=== PATIENT | male | born 1940 | race Two or more races ===

== ENCOUNTER 2023-01-10 23:01 | Emergency (ER) | payer SELFPAY ==
--- NOTE | 2023-01-10 | ECG_ITS ---
Test Reason : EDEMA Blood Pressure : / mmHG Vent. Rate : 088 BPM Atrial Rate : 088 BPM P-R Int : 188 ms QRS Dur : 076 ms QT Int : 382 ms P-R-T Axes : 070 -12 011 degrees QTc Int : 462 ms Normal sinus rhythm Nonspecific ST and T wave abnormality Abnormal ECG No previous ECGs available Referred By: Generic ED Physician Electronically Signed By:JOE WINSLOW MD
--- NOTE | ~2023-01-10 | XR_ITS ---
EXAMINATION: XR CHEST CLINICAL INFORMATION: Shortness of breath. Concern for congestive heart failure. COMPARISON: None available. TECHNIQUE: Frontal view of the chest was obtained. FINDINGS: The cardiomediastinal silhouette is within normal limits. There appears to be pulmonary vascular congestion. There is lower lung field increased markings. There is no focal consolidation or pleural effusion. The bony structures and soft tissues are unremarkable. XR/XR chest 1V IMPRESSION: Pulmonary vascular congestion. Lower lung field increased markings possibly chronic versus mild edema. No focal consolidation or pleural effusion.
[2023-01-10 23:03] VITALS: BP 142/85; PULSE 96; RESP 18; TEMP 36.8; O2SAT 96; BMI 23.8
[2023-01-10 23:43] LABS: Appearance Urine Clear; Color Urine Yellow; Glucose Urine UA Negative (Negative); Leukocyte Esterase Urine Negative (Negative); Nitrite Urine Negative (Negative); PH 7.5 (5.0-9.0); Specific Gravity - Urine <= 1.005 (1.005-1.025); Urine Blood Negative (Negative); Urine Ketones Negative (Negative); Urine Protein Negative (Neg-Trace)
[2023-01-10 23:48] LABS: Bacteria Urine None Seen (None Seen); Hyaline Casts Urine 0-2 /LPF (0-2); RBC Urine 0-2 /HPF (0-2); Squamous Epithelial Cell Urine 0-2 /HPF (0-2); WBC Urine 0-5 /HPF (0-5)
[2023-01-11 00:06] LABS: Alanine Aminotransferase 50 U/L (0-40); Albumin Level 4.2 g/dL (3.5-5.0); Alkaline Phosphatase 95 U/L (39-117); Anion Gap 15 (12-20); Aspartate Amino Transferase 58 U/L (5-37); Bilirubin Total 0.6 mg/dL (0.0-1.0); Blood Urea Nitrogen 16 mg/dL (9-16); Calcium 9.1 mg/dL (8.4-10.2); Carbon Dioxide 29 mmol/L (22-29); Chloride 91 mmol/L (96-108); Creatinine Clr Calc Pharmacy 28.6; Estimated Glomerular Filt Rate 57; Glucose Random 141 mg/dL (60-115); Potassium 3.2 mmol/L (3.3-5.1); Sodium 132 mmol/L (135-145); Total Protein 7.7 g/dL (6.5-8.0)
[2023-01-11 00:09] LABS: Basophils Absolute Auto 0.1 X10*3/uL (0.0-0.2); Basophils Percent Auto 1.5 % (0-2); Eosinophils Absolute Auto 0.7 X10*3/uL (0.0-0.4); Eosinophils Percent Auto 7.9 % (0-4); Hematocrit 38.9 % (42.0-52.0); Hemoglobin 15.1 g/dl (14.0-18.0); Imm Gran Abs Auto 0.09 X10*3/uL (0.00-0.03); Lymphocytes Absolute Auto 2.8 X10*3/uL (1.2-4.9); Lymphocytes Percent Auto 29.9 % (20-40); MANUAL DIFF FLAG SCAN; Mean Corpuscular Hemoglobin 32.2 pg (27.0-33.0); Mean Corpuscular Volume 82.9 fL (80.0-98.0); Mean Platelet Volume 9.2 fL (9.4-12.4); Monocytes Absolute Auto 1.2 X10*3/uL (0.1-1.2); Monocytes Percent Auto 13.2 % (2-11); Neutrophils Absolute Auto 4.3 x10*3/uL (2.0-8.3); Neutrophils Percent Auto 46.5 % (45-73); Platelet Count 259 X10*3/uL (160-400); Red Blood Count 4.69 X10*6/uL (4.60-5.80); Red Cell Distribution Width 11.2 % (11.0-16.0); SCAN SMEAR FLAG 1; White Blood Count 9.3 X10*3/uL (4.8-10.8)
[2023-01-11 00:27] LABS: Mean Corpuscular HGB Conc 38.8 g/dl (31.0-36.0)
[2023-01-11 00:29] LABS: SLIDE REVIEW VERIFIED
--- NOTE | 2023-01-11 01:25 | ED.GENADULT ---
HPI - General Adult General Chief complaint: General Medical Stated complaint: Swelling in legs 3 days Time Seen by Provider: 01/11/23 01:25 EDT Source: patient and family Mode of arrival: ambulatory Limitations: no limitations History of Present Illness HPI narrative: Patient history of hypertension diabetes came from [facility] brought by his daughter for ankle edema for last 3 days patient is on amlodipine 5 mg daily. No shortness of breath and no chest pain or palpitations patient feels slightly weak saturating 96% on room air Related Data Previous Rx's Medication Instructions Recorded losartan 50 mg-hydrochlorothiazide 1 tab PO DAILY #90 tabs 01/11/23 12.5 mg tablet potassium chloride 20 mEq 20 meq PO DAILY #90 tabs 01/11/23 tablet,extended release Allergies Allergy/AdvReac Type Severity Reaction Status Date / Time No Known Allergies Allergy Verified 01/10/23 23:12 Review of Systems Review of Systems: Yes all other systems are reviewed and are negative [facility] Social History Social History (Reviewed 01/11/23 @ 01:38 EDT by Anival Menjivar MD) Smoked in Last 30 Days: No Use of substances other than those prescribed or required for medical reasons: No Advance Directives: No Advance Directives Information Provided: No Physical Exam ED Vital Signs: Vital Signs - 24 hr 01/10/23 23:03 01/11/23 01:46 EDT Temperature 98.2 F 97.9 F Pulse Rate 96 81 Respiratory Rate 18 15 Blood Pressure 142/85 H 147/82 H Pulse Oximetry 96 96 Oxygen Delivery Method Room Air Room Air BMI result Body Mass Index 23.8 Appearance: Alert. Oriented X3. No acute distress. Eyes: PERRLA, No Nystagmus ENT: Pharynx normal. Oral Mucosa moist Neck: Normal inspection. Neck supple. CVS: Normal heart rate and rhythm. Pulses normal. Respiratory: No respiratory distress. Equal air entry bilateral, no wheezing/rales/rhonchi Abdomen: Soft and nontender. Bowel sounds are present, no mass palpable, Skin: Skin warm and dry. Normal skin color. Normal skin turgor. Extremities: Trace bilateral lower extremity edema. No calf tenderness Neuro: Oriented X 3. No motor deficit. Medications Administered Discontinued Medications Generic Name Dose Route Start Last Admin Trade Name Freq PRN Reason Stop Dose Admin Potassium Chloride 20 meq 01/11/23 01:33 EST 01/11/23 01:53 EST Potassium Chloride Er 20 Meq Tab.Er.Prt PO 01/11/23 01:34 EST 20 meq ONCE ONE Administration Medical Decision Making Medical Decision Making [facility] Narrative: Patient with no finding of CHF comes here for ankle edema secondary to likely amlodipine use will advise the patient to stop taking amlodipine and start on losartan Differential Diagnosis Differential Diagnoses: The differential diagnosis associated with the presentation includes CHF/medication side effect Admission/Observation Consideration of admission/observation: Escalation of care including admission/observation considered Lab Data [facility] Lab Attestation statement: I reviewed the patient's lab results. 01/10/23 23:28 01/10/23 23:28 Labs: Lab Results 01/10/23 01/10/23 Range/Units 23:28 23:36 WBC 9.3 (4.8-10.8) X10*3/uL RBC 4.69 (4.60-5.80) X10*6/uL Hgb 15.1 (14.0-18.0) g/dl Hct 38.9 L (42.0-52.0) % MCV 82.9 (80.0-98.0) fL MCH 32.2 (27.0-33.0) pg MCHC 38.8 H (31.0-36.0) g/dl RDW 11.2 (11.0-16.0) % Plt Count 259 (160-400) X10*3/uL MPV 9.2 L (9.4-12.4) fL Immature Gran % (Auto) 1.0 H (0.0-0.4) % Neut % (Auto) 46.5 (45-73) % Lymph % (Auto) 29.9 (20-40) % Granite % (Auto) 13.2 H (2-11) % Eos % (Auto) 7.9 H (0-4) % Baso % (Auto) 1.5 (0-2) % Lymph # (Auto) 2.8 (1.2-4.9) X10*3/uL Granite # (Auto) 1.2 (0.1-1.2) X10*3/uL Eos # (Auto) 0.7 H (0.0-0.4) X10*3/uL Baso # (Auto) 0.1 (0.0-0.2) X10*3/uL Abs Immat Gran (auto) 0.09 H (0.00-0.03) X10*3/uL Absolute Neuts (auto) 4.3 (2.0-8.3) x10*3/uL Absolute Nucleated RBC 0.000 (0.0-0.012) X10*3/uL Nucleated RBC % (auto) 0.0 (0.0-0.2) /100WBC Smear Tech's Comments VERIFIED Sodium 132 L (135-145) mmol/L Potassium 3.2 L (3.3-5.1) mmol/L Chloride 91 L (96-108) mmol/L Carbon Dioxide 29 (22-29) mmol/L Anion Gap 15 (12-20) BUN 16 (9-16) mg/dL Creatinine 1.21 (0.5-1.4) mg/dL Estim Creat Clear Calc 28.6 Estimated GFR 57 Random Glucose 141 H (60-115) mg/dL Calcium 9.1 (8.4-10.2) mg/dL Total Bilirubin 0.6 (0.0-1.0) mg/dL AST 58 H (5-37) U/L ALT 50 H (0-40) U/L Alkaline Phosphatase 95 (39-117) U/L B-Natriuretic Peptide Cancelled Total Protein 7.7 (6.5-8.0) g/dL Albumin 4.2 (3.5-5.0) g/dL Urine Color Yellow Urine Appearance Clear Urine pH 7.5 (5.0-9.0) Ur Specific [place] <= 1.005 (1.005-1.025) Urine Protein Negative (Neg-Trace) mg/dL Urine Glucose (UA) Negative (Negative) mg/dL Urine Ketones Negative (Negative) mg/dL Urine Blood Negative (Negative) Urine Nitrite Negative (Negative) Ur Leukocyte Esterase Negative (Negative) Urine RBC 0-2 (0-2) /HPF Urine WBC 0-5 (0-5) /HPF Ur Squamous Epith Cells 0-2 (0-2) /HPF Urine Bacteria None Seen (None Seen) Hyaline Casts 0-2 (0-2) /LPF Independent Interpretation I performed an independent interpretation of an: EKG and Plain X-Ray Interpretation: Normal sinus rhythm heart rate 88 beats per minute poor progression of R-wave no acute ST changes no acute ischemia Radiology Impression Discussion of test interpretation with radiology: I have reviewed the radiologist's reading. Discharge Plan Discharge Clinical Impression: Ankle edema, bilateral Patient Disposition: Home, Self-Care Instructions: Edema (ED) Additional Instructions: leg edema is likely from amlodipine use as a side effect Stop using amlodipine start taking the new medication as prescribed for blood pressure control Keep your legs elevated Continue her potassium and other medications and follow with PCP Es probable que el edema en las piernas se deba al uso de amlodipino ryland efecto secundario. Deje de usar amlodipino y comience a estrella el nuevo medicamento seg?n lo prescrito para el control de la presi?n arterial. Mantenga las piernas elevadas Contin?e con oakley potasio y otros medicamentos y siga con PCP. Prescriptions: New losartan-hydrochlorothiazide 50-12.5 mg tablet 1 tab PO DAILY Qty: 90 0RF potassium chloride 20 mEq tablet extended release 20 meq PO DAILY Qty: 90 0RF Interventions: ED Discharge Assessment Last Done: 01/11/23 01:56 Discharge Date/Time: 01/11/23 02:13 Print Language: [place]ik
[2023-01-11 01:46] VITALS: BP 147/82; PULSE 81; RESP 15; TEMP 36.6; O2SAT 96
[2023-01-11] MEDS: Potassium Chloride ER 20 MEQ TAB.ER.PRT PO (01:53)
== END 2023-01-11 02:13 | disposition home or self-care (01) ==
PROVIDERS: Emergency Provider Internal Medicine
DX: R60.0 Localized edema (principal); E11.9 Type 2 diabetes mellitus without complications; I10 Essential (primary) hypertension; Z79.899 Other long term (current) drug therapy
CPT/HCPCS: 36415; 71045; 80053; 81001; 85025; 93005; 99283; 99284